=== PATIENT | female | born 1955 | race Hispanic/Latino ===

== ENCOUNTER 2018-06-14 16:59 | Inpatient (IN) | payer MEDICAID, MEDICARE ==
[2018-06-14 16:59] VITALS: BMI 29.6
[2018-06-14 17:14] VITALS: O2SAT 100
--- NOTE | 2018-06-14 18:14 | ED PDOC ---
HPI: Psych/Substance Abuse Time Seen by Provider: 06/14/18 17:19 Chief Complaint (Nursing): Psychiatric Evaluation History Per: Patient, Other (Jose (family friend)) Additional Complaint(s): Pt. states earlier today in her retirement she got into a verbal altercation with another resident. Admits to feeling anxious the last several days. States that she has not taken her meds as she does not know if she has enough of them. Reports a hx of anxiety. Denies SI/HI, hallucinations. Past Medical History Reviewed: Historical Data, Nursing Documentation, Vital Signs Vital Signs: Last Vital Signs Temp 98 F 06/14/18 17:10 Pulse 94 H 06/14/18 17:10 Resp 18 06/14/18 17:10 BP Pulse Ox 100 06/14/18 17:10 - Medical History PMH: Anxiety, Depression, Diverticulitis, HTN, Migraine Denies: Diabetes, Hepatitis, HIV, Chronic Kidney Disease, Seizures, Sexually Transmitted Disease - Surgical History Surgical History: Appendectomy, Tonsillectomy - Family History Family History: States: No Known Family Hx - Home Medications Home Medications: Ambulatory Orders Medication Instructions Recorded Clonazepam [Klonopin] 2 mg PO Q12 06/14/18 Escitalopram [Lexapro] 10 mg PO DAILY 06/14/18 Fluticasone Nasal [Flonase] 2 spray JAY DAILY 06/14/18 Loratadine [Claritin] 10 mg PO DAILY 06/14/18 Meclizine [Meclizine*] 25 mg PO DAILY 06/14/18 Multivitamin [Multi-Vitamin Daily] 1 tab PO DAILY 06/14/18 Sodium Chloride [Saline Nasal 2 spray JAY DAILY PRN 06/14/18 [place]] Verapamil HCl [Verapamil ER] 240 mg PO DAILY 06/14/18 Zonisamide [Zonisamide] 150 mg PO BID 06/14/18 hydrOXYzine HCl [Atarax] 50 mg PO TID 06/14/18 traZODone [Desyrel] 50 mg PO HS 06/14/18 - Allergies Allergies/Adverse Reactions: Allergies Allergy/AdvReac Type Severity Reaction Status Date / Time No Known Allergies Allergy Verified 10/24/13 17:35 Review of Systems ROS Statement: Except As Marked, All Systems Reviewed And Found Negative Psych: Positive for: Anxiety Physical Exam - Reviewed Nursing Documentation Reviewed: Yes Vital Signs Reviewed: Yes - Physical Exam Appears: Positive for: Well, Non-toxic, No Acute Distress Head Exam: Positive for: ATRAUMATIC, NORMAL INSPECTION, NORMOCEPHALIC Skin: Positive for: Normal Color, Warm. Negative for: Rash Eye Exam: Positive for: EOMI, Normal appearance, PERRL ENT: Positive for: Normal ENT Inspection Neck: Positive for: Normal, Painless ROM Cardiovascular/Chest: Positive for: Regular Rate, Rhythm Respiratory: Positive for: CNT, Normal Breath Sounds Gastrointestinal/Abdominal: Positive for: Normal Exam, Soft. Negative for: Tenderness Back: Positive for: Normal Inspection Extremity: Positive for: Normal ROM Neurologic/Psych: Positive for: Alert, Oriented, Mood/Affect (slightly anxious, cooperative). Negative for: Aphasia, Facial Droop - Laboratory Results Result Diagrams: 06/15/18 06:20 06/14/18 19:18 - ECG O2 Sat by Pulse Oximetry: 100 - Radiology X-Ray: Interpreted by Me (CXR) X-Ray Interpretation: No Acute Disease - Progress ED Course And Treament: Crisis eval ordered. BP 148/88 (as per Wist RN - drywall professional) Pt. evaluated by Subhash ecclesiastical worker who spoke with Dr. Lozano and requests pt. to be admitted. Labs, CXR, EKG, klonopin 2mg PO ordered. Disposition - Clinical Impression Clinical Impression: Bipolar affective disorder - Patient ED Disposition Is Patient to be Admitted: Transfer of Care (Signed out to Tal PAREDES pending medical clearance) - Disposition Disposition Time: 20:00 Condition: STABLE
[2018-06-14 19:22] LABS: BASO # 0.1 K/uL (0.0-0.2); BASO % 0.7 % (0.0-2.0); EOS # 0.1 K/uL (0.0-0.7); HEMOGLOBIN 12.7 g/dL (12.0-16.0); LYMPH # 3.8 K/uL (1.0-4.3); MEAN CELL VOLUME 86.3 fl (81.0-99.0); MEAN CORPUSCULAR HEMOGLOBIN 28.6 pg (27.0-31.0); MEAN CORPUSCULAR HGB CONC 33.1 g/dL (33.0-37.0); MEAN PLATELET VOLUME 7.6 fl (7.2-11.7); MONO # 0.7 K/uL (0.0-0.8); MONO % 5.5 % (0.0-10.0); NEUT # 8.7 K/uL (1.8-7.0); NEUT % 64.8 % (50.0-75.0); RBC 4.45 Mil/uL (3.80-5.20); RED CELL DISTRIBUTION WIDTH 13.5 % (11.5-14.5); WHITE BLOOD COUNT 13.5 K/uL (4.8-10.8)
[2018-06-14 19:38] LABS: ALB/GLOB RATIO 1.6 (1.0-2.1); ALBUMIN 4.6 g/dL (3.5-5.0); ALT/SGPT 33 U/L (9-52); AST/SGOT 27 U/L (14-36); BLOOD UREA NITROGEN 23 mg/dl (7-17); CALCIUM 9.5 mg/dL (8.4-10.2); GFR NON-AFRICAN AMERICAN 56
--- NOTE | 2018-06-14 20:50 | ED PDOC ---
- Laboratory Results Result Diagrams: 06/14/18 19:18 06/14/18 19:18 - ECG ECG: Positive for: Viewed By Me (reviewed by ED attending) ECG Rhythm: Positive for: Sinus Rhythm O2 Sat by Pulse Oximetry: 100 - Progress ED Course And Treament: case endorsed to chief underwriter from Deion PAREDES pending urine, ekg, psych admission Medical Decision Making Medical Decision Making: Patient medically stable for psych admission Disposition - Clinical Impression Clinical Impression: Bipolar affective disorder - POA Present On Arrival: None - Disposition Disposition: Admitted as In-Patient Disposition Time: 23:00 Condition: STABLE
[2018-06-14 23:00] LABS: SQUAMOUS EPITHIAL 1 /hpf (0-5); URINE BILIRUBIN NEGATIVE (NEGATIVE); URINE BLOOD NEGATIVE (NEGATIVE); URINE CLARITY CLEAR (Clear); URINE COLOR YELLOW (YELLOW); URINE GLUCOSE (UA) NEG (Normal); URINE LEUKOCYTE ESTERASE NEG Leu/uL (Negative); URINE PROTEIN 30 mg/dL (NEGATIVE); URINE UROBILINOGEN 0.2-1.0 mg/dL (0.2-1.0)
[2018-06-14 23:15] LABS: BARBITURATES, UR NEGATIVE (NEGATIVE); BENZODIAZEPINES, UR NEGATIVE (NEGATIVE); OPIATES, UR NEGATIVE (NEGATIVE); PHENCYCLIDINE, UR NEGATIVE (NEGATIVE)
[2018-06-15] MEDS ORDERED: Alum-Mag Hydrox-Simethicone Susp (30 mL) PO PRN (01:08)
[2018-06-15] MEDS ORDERED: Magnesium Hydroxide Susp 30 ml UD PO PRN (01:08)
--- NOTE | 2018-06-15 01:46 | PCM.BM ---
<Blanche Zuluaga - Last Filed: 06/15/18 01:43> Treatment Plan Problems - Problems identified on initial assessmt Agitated/aggressive behavior Date Initiated: 06/15/18 Time Initiated: 01:44 Assessment reference: NA Status: Active Medication nonadherence Date Initiated: 06/15/18 Time Initiated: 01:45 Assessment reference: NA Status: Active Treatment assets and liabiliti Patient Assests: ADL independent, negotiates basic needs, cognitively intact Patient Liabilities: live alone, poor support system, medical problems - Milieu Protocol Maintain good personal hygiene: every shift Encourage regular showers, every shift Remind patient to perform daily oral care, every shift Assist patient to perform ADL's Conduct patient checks and document Observation sheet: Q15 minutes Maintain personal safety: every shift Educate patient to report safety concerns to staff, every shift Monitor environment for contraband/sharps Medication safety: Monitor for expected outcome, potential side effects: every shift, Assess barriers to learning: every shift, Assess readiness for medication education: every shift <Charmaine De La Cruz - Last Filed: 06/15/18 10:37> - Diagnosis (1) Bipolar affective disorder Status: Acute Interventions: Medication management, Individual and group therapy, Psychoeducation 06/15/18 10:37 <Calli Winters - Last Filed: 06/15/18 15:17> Family Contact Family involvement: No known Family/SO - [facility] Information-sharing Agency contact name: [facility] contact number: [phone] or [phone] - Goals for Treatment Patient goals for treatment: Pt to be encouraged to attend activity and clinical groups 3-5x per week to identify at least 2 contributing factors to increased agitation, irritability, and aggression. Psycho-education to be provided to patient/family regarding benefits of medications and treatment adherence. Pt to be encouraged to participate in group milieu to develop effective coping skills to reduce aggression and reduce psychiatric hospitalizations. Coordinate discharge resource needs by providing referral for psychiatric treatment follow up in the community. Discharge/Continuing Care - Education Needs Education Needs: Family Medication, Family Diagnosis/Disease Process, Family Coping Skills, Family Placement options, Family Community resources, Family Activities of Daily Living, Family Health Practices/Safety, Family Personal Hygiene/Grooming, Family Aftercare Safety Plan - Discharge Discharge Criteria: Tolerates medication w/o severe side effects, Free of agitation, Normal sleep pattern, Ability to care for self, Reduction of target symptoms Discharge to:: Detention - Additional Comments 06/15/18 15:08 Pt seen and discussed in team meeting. Reason for hospitalization reviewed and discussed. Pt reported she was referred to the hospital because "I got upset." Reportedly, pt became aggressive at the [facility]. Pt was easily agitated, irritable and demanding during team meeting. Pt demanding that she be provided with her cell phone. Pt informed that she cannot have her cell phone with her on the unit; however, that she can write down the telephone numbers in a piece of paper. Pt was not agreeable stating "It's a confidentially thing." Pt presented a suspicious and guarded during team meeting. Pt also reported that she can read things that are going to happen in the future. Pt's medical and social issues reviewed and discussed. Pt's medications reviewed. Pt reported she does not recall how long she stopped taking her medications and what medications she was taking. Tx plan reviewed and discussed. Pt verbalized agreement. Pt signed consent forms for Christa Fields and Dr. Martin Mariscal MD. SW to continue to follow case. - Treatment Team Participation Discussed with Family/SO: No Was Patient/Family/SO present at Treatment Team Meeting: Yes
[2018-06-15 06:40] LABS: HEMOGLOBIN 12.2 g/dL (12.0-16.0); MEAN CELL VOLUME 86.1 fl (81.0-99.0); MEAN CORPUSCULAR HEMOGLOBIN 28.5 pg (27.0-31.0); MEAN CORPUSCULAR HGB CONC 33.1 g/dL (33.0-37.0); RBC 4.28 Mil/uL (3.80-5.20); RED CELL DISTRIBUTION WIDTH 14.1 % (11.5-14.5); WHITE BLOOD COUNT 12.7 K/uL (4.8-10.8)
[2018-06-15 06:45] LABS: HDL CHOLESTEROL 102 MG/DL (30-70)
[2018-06-15 06:56] LABS: LDL CHOLESTEROL 83 mg/dL (0-129)
[2018-06-15 06:59] LABS: IRON 83 ug/dL (37-170)
[2018-06-15 07:01] LABS: T4 7.37 ug/dl (5.5-11.0)
[2018-06-15 07:12] LABS: % IRON SATURATION 26 % (20-55); TOTAL IRON BINDING CAPACITY 320 ug/dL (250-450)
[2018-06-15 07:18] LABS: FERRITIN 21.2 ng/Ml (11.1-264.0)
--- NOTE | 2018-06-15 07:53 | PCM.PSYCH ---
Initial Psychiatric Evaluation - Initial Psychiatric Evaluation Type of Admission: Voluntary Legal Status: Capacity Chief Complaint (in patient's own words): "I have FRANCES" Patient's Reaction to Hospitalization: HPI: 63 yo female referred by her senior care for worsening aggression, mood lability, pressured speech, and psychotic beliefs that she has FRANCES and can read some people's minds. She denies acute AH/VH/SI/HI. She is acutely paranoid and refuses to write things on paper due to concerns of "confidentiality." PPHx: H/o 3 prior psychiatric hospitalizations; not compliant w/ outpatient treatment or medications PMHx: HTN; Seasonal allergies ALL: NKDA SHx: Lives in a senior care; denies current drug/etoh/cig use Current Medications: Active Medications Generic Name Dose Route Start Last Admin Trade Name Freq PRN Reason Stop Dose Admin Acetaminophen 650 mg 06/15/18 01:08 Tylenol 325mg Tab PO Q4 PRN Pain, moderate (4-7) Al Hydrox/Mg Hydrox/Simethicone 30 ml 06/15/18 01:08 Maalox Plus 30 Ml PO Q4 PRN Dyspepsia Bismuth Subsalicylate 524 mg 06/15/18 01:08 Pepto-Bismol PO Q4 PRN Diarrhea Lorazepam 0.5 mg 06/15/18 01:08 Ativan PO 06/29/18 01:09 HS PRN Insomnia Lorazepam 0.5 mg 06/15/18 01:08 Ativan PO 06/29/18 01:09 Q6 PRN Anixety/Agitation Magnesium Hydroxide 30 ml 06/15/18 01:08 Milk Of Magnesia PO HS PRN Constipation Past Psychiatric History - Past Psychiatric History Previous Treatment History: Inpatient Pertinent Medical Hx (Current Medical&Sleep Prob, Allergies): Allergies Allergy/AdvReac Type Severity Reaction Status Date / Time No Known Allergies Allergy Verified 10/24/13 17:35 Clonazepam [Klonopin] 2 mg PO Q12 06/14/18 Escitalopram [Lexapro] 10 mg PO DAILY 06/14/18 Fluticasone Nasal [Flonase] 2 spray JAY DAILY 06/14/18 Loratadine [Claritin] 10 mg PO DAILY 06/14/18 Meclizine [Meclizine*] 25 mg PO DAILY 06/14/18 Multivitamin [Multi-Vitamin Daily] 1 tab PO DAILY 06/14/18 Sodium Chloride [Saline Nasal [place]] 2 spray JAY DAILY PRN 06/14/18 Verapamil HCl [Verapamil ER] 240 mg PO DAILY 06/14/18 Zonisamide [Zonisamide] 150 mg PO BID 06/14/18 hydrOXYzine HCl [Atarax] 50 mg PO TID 06/14/18 traZODone [Desyrel] 50 mg PO HS 06/14/18 Review of Systems - Psychiatric Psychiatric: As Per HPI, Abnormal Sleep Pattern, Behavioral Changes, Change in Appetite, Difficulty Concentrating, Irritability, Mood Swings, Paranoia, Other ( Aggression/Agitation) Mental Status Examination - Personal Presentation Personal Presentation: Looks older than stated age - Affect Affect: Other (Labile, Irritable) - Motor Activity Motor Activity: Psychomotor Agitation - Reliability in Providing Information Reliability in Providing Information: Poor, due to alteration in thoughts - Speech Speech: Tangential - Mood Mood: Other (Angry) - Formal Thought Process Formal Thought Process: Paranoia, Loosening of associations, Flight of ideas, Other (Grandiose; believes she has FRANCES) - Hallucinations/Delusions Additional comments: Denies AH/VH - Obsessions/Compulsions Obsessions: No Compulsions: No - Cognitive Functions Orientation: Person, Place, Situation, Time Sensorium: Alert Attention/Concentration: Attentive Estimate of Intelligence: Average Judgement: Imparied, as evidence by: Lack of insight into illness Memory: Recent impaired, as evidence by: Inability to recall events of the day - Risk Risk: Diminished functioning - Strength & Assets Inventory Strength & Assets Inventory: Life experience DSM 5 DX - DSM 5 DSM 5 Diagnosis: Bipolar Disorder w/ Psychotic Features vs Schizoaffective Disorder - Recommended/Plan of Treatment Treatment Recommendations and Plan of Treatment: Bipolar Disorder w/ Psychotic Features vs Schizoaffective Disorder -Admit to psychiatry unit -Individual and group therapy -Start Risperdal and titrate gradually -Medicine consult -Psychoeducation -Obtain collateral history -Disposition planning Projected ELOS: 7-10 days Discharge Plan and Discharge Criteria: Discharge when patient is psychiatrically stable - Smoking Cessation Smoking Cessation Initiated: No Reason for not providing: Not indicated
--- NOTE | 2018-06-15 08:23 | CARD ---
APPROVED REPORT Date of service: 06/14/2018 EKG Measurement Heart [id number] <Conclusion> Normal sinus rhythm Prolonged QT Abnormal ECG
--- NOTE | 2018-06-15 09:10 | RAD ---
Date of service: 06/14/2018 HISTORY: clearance COMPARISON: No prior. FINDINGS: LUNGS: No active pulmonary disease. PLEURA: No significant pleural effusion identified, no pneumothorax apparent. CARDIOVASCULAR: Normal. OSSEOUS STRUCTURES: No significant abnormalities. VISUALIZED UPPER ABDOMEN: Normal. OTHER FINDINGS: None. IMPRESSION: No active disease.
[2018-06-15] MEDS ORDERED: DiphenhydrAMINE 50 mg/ml Inj IM PRN (10:39)
[2018-06-15 13:15] LABS: FOLATE > 20.0 ng/mL
[2018-06-16] MEDS: Verapamil 240 mg ER Tab PO SCH (08:45)
[2018-06-16] MEDS: Multivitamin With Minerals Tab PO SCH (08:47)
--- NOTE | 2018-06-16 10:47 | PCM.PYCHPN ---
Psychiatric Progress Note - Psychiatric Progress Note Patient seen today, length of contact: pt seen and evaluated. Patient Chief Complaint: pt has remained very paranoid and labile with poor insight and constantly getting into altercation with peers. pt has poor insight and poor judgemet and need constant redirection. Mental Status Examination - Cognitive Function Orientation: Person, Place, Situation, Time - Mood Mood: Other (Angry) - Affect Affect: Other (Labile, Irritable) - Formal Thought Process Formal Thought Process: Paranoia, Loosening of associations, Flight of ideas, Other (Grandiose; believes she has FRANCES) Goal/Treatment Plan - Goal/Treatment Plan Progress Toward Problem(s) and Goals/Treatment Plan: will increase risperdal to 1 mg am and 2 mg hs to stabilize the psychosis. Disposition as per dr dee.
[2018-06-16] MEDS: Nasal Spray(Ocean spray) NAS PRN (13:09)
--- NOTE | 2018-06-16 18:06 | CP.PCM.CON ---
History of Present Illness - History of Present Illness History of Present Illness: 63 yo female with no significant PMH admitted in [facility] because of worsening aggression in [facility]. Review of Systems - Review of Systems All systems: reviewed and no additional remarkable complaints except (aside from those mentioned above, 12 point system review were negative by me) Past Patient History - Infectious Disease Hx of Infectious Diseases: None - Tetanus Immunizations Tetanus Immunization: Up to Date - Past Social History Smoking Status: Never Smoked Chewing Tobacco Use: No Cigar Use: No Alcohol: Occasional Home Situation {Lives}: Other (Correction) - CARDIAC Hx Hypertension: Yes - PULMONARY Hx Tuberculosis: No Other/Comment: "Chronic respiratory failure" - NEUROLOGICAL Hx Migraine: Yes Hx Seizures: No - HEENT Hx HEENT Problems: No - RENAL Hx Chronic Kidney Disease: No - ENDOCRINE/METABOLIC Hx Endocrine Disorders: No - HEMATOLOGICAL/ONCOLOGICAL Hx Human Immunodeficiency Virus (HIV): No - INTEGUMENTARY Hx Dermatological Problems: No Hx Cellulitis: Yes - MUSCULOSKELETAL/RHEUMATOLOGICAL Hx Musculoskeletal Disorders: No Hx Falls: No - GASTROINTESTINAL Hx Diverticulitis: Yes - GENITOURINARY/GYNECOLOGICAL Hx Sexually Transmitted Disorders: No - PSYCHIATRIC Hx Anxiety: Yes Hx Depression: Yes - SURGICAL HISTORY Hx Appendectomy: Yes Hx Tonsillectomy: Yes - ANESTHESIA Hx Anesthesia: Yes Hx Anesthesia Reactions: No Hx Malignant Hyperthermia: No Meds Allergies/Adverse Reactions: Allergies Allergy/AdvReac Type Severity Reaction Status Date / Time No Known Allergies Allergy Verified 10/24/13 17:35 - Medications Medications: Current Medications Acetaminophen (Tylenol 325mg Tab) 650 mg PO Q4 PRN PRN Reason: Pain, moderate (4-7) Last Admin: 06/16/18 03:20 Dose: 650 mg Al Hydrox/Mg Hydrox/Simethicone (Maalox Plus 30 Ml) 30 ml PO Q4 PRN PRN Reason: Dyspepsia Bismuth Subsalicylate (Pepto-Bismol) 524 mg PO Q4 PRN PRN Reason: Diarrhea Diphenhydramine HCl (Benadryl) 50 mg IM Q6 PRN PRN Reason: Agitation Diphenhydramine HCl (Benadryl) 50 mg PO Q6 PRN PRN Reason: Agitation Last Admin: 06/16/18 10:10 Dose: 50 mg Fluticasone Propionate (Flonase) 2 spr JAY DAILY SHARON Haloperidol (Haldol) 2 mg PO Q6 PRN PRN Reason: Agitation Last Admin: 06/15/18 12:08 Dose: 2 mg Haloperidol Lactate (Haldol) 2 mg IM Q6 PRN PRN Reason: Agitation Ibuprofen (Motrin Tab) 400 mg PO Q6 PRN PRN Reason: Pain, Mild (1-3) Loratadine (Claritin) 10 mg PO DAILY [facility] Last Admin: 06/16/18 08:46 Dose: 10 mg Lorazepam (Ativan) 0.5 mg PO HS PRN PRN Reason: Insomnia Stop: 06/29/18 01:09 Last Admin: 06/15/18 21:32 Dose: 0.5 mg Lorazepam (Ativan) 1 mg IM Q6 PRN PRN Reason: Agitation Lorazepam (Ativan) 1 mg PO Q6 PRN PRN Reason: Anixety/Agitation Stop: 06/29/18 01:09 Last Admin: 06/16/18 10:10 Dose: 1 mg Magnesium Hydroxide (Milk Of Magnesia) 30 ml PO HS PRN PRN Reason: Constipation Multivitamins/Minerals (Therapeutic-M Tab) 1 tab PO DAILY [facility] Last Admin: 06/16/18 08:47 Dose: 1 tab Risperidone (Risperdal Tab) 1 mg PO Q12 [facility] Last Admin: 06/16/18 08:47 Dose: 1 mg Sodium Chloride (Brule Nasal [place]) 1 sprays JAY DAILY PRN PRN Reason: Nasal congestion Last Admin: 06/16/18 13:09 Dose: 1 spray Verapamil HCl (Calan Sr Tab) 240 mg PO DAILY [facility] Last Admin: 06/16/18 08:45 Dose: 240 mg Physical Exam - Constitutional Appears: No Acute Distress - Head Exam Head Exam: ATRAUMATIC - Eye Exam Eye Exam: absent: Scleral icterus - ENT Exam ENT Exam: Mucous Membranes Moist - Neck Exam Neck exam: Negative for: Meningismus - Respiratory Exam Respiratory Exam: absent: Rales, Rhonchi, Wheezes, Respiratory Distress - Cardiovascular Exam Cardiovascular Exam: REGULAR RHYTHM, +S1, +S2 - GI/Abdominal Exam GI & Abdominal Exam: Soft. absent: Tenderness - Rectal Exam Rectal Exam: Deferred - Extremities Exam Extremities exam: Negative for: pedal edema - Neurological Exam Neurological exam: Alert, Oriented x3 - Psychiatric Exam Psychiatric exam: Normal Affect - Skin Skin Exam: Dry, Intact Results - Vital Signs Recent Vital Signs: Last Vital Signs Temp 97.3 F L 06/16/18 15:36 Pulse 92 H 06/16/18 15:36 Resp 20 06/16/18 15:36 BP 149/67 06/16/18 15:36 Pulse Ox 100 06/15/18 10:28 - Labs Result Diagrams: 06/15/18 06:20 06/14/18 19:18 Labs: Laboratory Results - last 24 hr 06/15/18 06:20 RPR Nonreactive Assessment & Plan (1) Aggression Status: Acute Comment: psyche is managing
[2018-06-17] MEDS: Verapamil 240 mg ER Tab PO SCH (08:32)
[2018-06-17] MEDS: Multivitamin With Minerals Tab PO SCH (08:35)
--- NOTE | 2018-06-17 13:17 | PCM.PYCHPN ---
Psychiatric Progress Note - Psychiatric Progress Note Patient seen today, length of contact: pt seen and evaluated. Patient Chief Complaint: pt has been very somatic and attention seeking and has remained very paranoid and labile with poor insight and constantly getting into altercation with peers. pt has poor insight and poor judgemet and need constant redirection. Mental Status Examination - Cognitive Function Orientation: Person, Place, Situation, Time - Mood Mood: Other (Angry) - Affect Affect: Other (Labile, Irritable) - Formal Thought Process Formal Thought Process: Paranoia, Loosening of associations, Flight of ideas, Other (Grandiose; believes she has FRANCES) Goal/Treatment Plan - Goal/Treatment Plan Progress Toward Problem(s) and Goals/Treatment Plan: will increase risperdal to 1 mg am and 2 mg hs to stabilize the psychosis. Disposition as per dr dee.
[2018-06-18] MEDS: Verapamil 240 mg ER Tab PO SCH (08:04)
[2018-06-18] MEDS: Multivitamin With Minerals Tab PO SCH (08:09)
--- NOTE | 2018-06-18 09:24 | PCM.PYCHPN ---
Psychiatric Progress Note - Psychiatric Progress Note Patient seen today, length of contact: Patient evaluated, case discussed w/ team , chart reviewed Patient Chief Complaint: "I have FRANCES" Problems Identified/Issues Discussed: Patient continues to be manic w/ tangential and pressured speech; but she is calmer and more redirectable than when she was first admitted. She denies current adverse effects to medications and we discussed continued titration of Risperdal. She continues to be believe she has special abilities, such as FRANCES. Medication Change: No Medical Record Reviewed: Yes Consults ordered or reviewed: Medicine consult Mental Status Examination - Cognitive Function Orientation: Person, Place, Situation, Time Memory: Intact Attention: Poor Association: Loose Fund of Knowledge: WNL Decription of patient's judgement and insights: Poor I/J - Mood Mood: Euphoric - Affect Affect: Other (Labile) - Speech Speech: Pressured - Formal Thought Process Formal Thought Process: Delusions, Loosening of associations, Flight of ideas, Other (Grandiose; believes she has FRANCES) Psychotic Thoughts and Behaviors: +Grandiose delusions; denies AH/VH - Suicidal Ideation Suicidal Ideation: No - Homicidal Ideation Homicidal Ideation: No Goal/Treatment Plan - Goal/Treatment Plan Need for Continued Stay: Remain at risks for inpatient hospitalization, Discharge may exacerbated symptoms Progress Toward Problem(s) and Goals/Treatment Plan: Bipolar Disorder w/ Psychotic Features vs Schizoaffective Disorder -Individual and group therapy -Risperdal 1 mg PO AM/2 mg PO HS; will increase to 2 mg PO Q12 tomorrow -Medicine consult -Psychoeducation -Obtain collateral history -Disposition planning Estimated Date of D/C: 06/21/18
[2018-06-18] MEDS: Bismuth Subsalicylate 262 mg/15 ml Sus (240 ml) PO PRN (11:34)
[2018-06-18] MEDS ORDERED: Albuterol HFA 90 mcg/actuation (8 g) INH PRN (16:57)
[2018-06-18] MEDS: Nasal Spray(Ocean spray) NAS PRN (18:36)
[2018-06-19] MEDS: Multivitamin With Minerals Tab PO SCH (08:44)
[2018-06-19] MEDS: Verapamil 240 mg ER Tab PO SCH (08:44)
--- NOTE | 2018-06-19 09:59 | PCM.PYCHPN ---
Psychiatric Progress Note - Psychiatric Progress Note Patient seen today, length of contact: Patient evaluated, case discussed w/ team , chart reviewed Patient Chief Complaint: "I have FRANCES" Problems Identified/Issues Discussed: Patient continues to be manic w/ pressured speech and beliefs that she has FRANCES. We discussed starting Risperdal Consta to increase compliance with treatment and medications. Medication Change: Yes (Start Risperdal Consta 25 mg IM) Medical Record Reviewed: Yes Consults ordered or reviewed: Medicine consult Mental Status Examination - Cognitive Function Orientation: Person, Place, Situation, Time Memory: Intact Attention: Poor Association: Loose Fund of Knowledge: WNL Decription of patient's judgement and insights: Poor I/J - Mood Mood: Euphoric - Affect Affect: Other (Labile) - Speech Speech: Pressured - Formal Thought Process Formal Thought Process: Delusions, Loosening of associations, Flight of ideas, Other (Grandiose; believes she has FRANCES) Psychotic Thoughts and Behaviors: +Grandiose delusions; denies AH/VH - Suicidal Ideation Suicidal Ideation: No - Homicidal Ideation Homicidal Ideation: No Goal/Treatment Plan - Goal/Treatment Plan Need for Continued Stay: Remain at risks for inpatient hospitalization, Discharge may exacerbated symptoms Progress Toward Problem(s) and Goals/Treatment Plan: Bipolar Disorder w/ Psychotic Features vs Schizoaffective Disorder -Individual and group therapy -Risperdal Consta 25 mg IM on 06/19/18; will continue PO Risperdal for 2 weeks -Medicine consult -Psychoeducation -Disposition planning Estimated Date of D/C: 06/22/18
[2018-06-19] MEDS ORDERED: risperiDONE Consta 25mg/2ml Syringe IM ONE (10:09)
[2018-06-19] MEDS: Bismuth Subsalicylate 262 mg/15 ml Sus (240 ml) PO PRN (13:28)
[2018-06-19] MEDS: Lubricant Eye Drops UD OU PRN (19:33)
[2018-06-20] MEDS: Lubricant Eye Drops UD OU PRN ×2 (01:07→21:00)
--- NOTE | 2018-06-20 08:23 | PCM.PYCHPN ---
Psychiatric Progress Note - Psychiatric Progress Note Patient seen today, length of contact: Patient evaluated, case discussed w/ team , chart reviewed Patient Chief Complaint: "I have FRANCES" Problems Identified/Issues Discussed: Patient is calmer, w/ less pressured speech, but continues to be intrusive and believes she has special abilities, although she is less pressured to talk about her FRANCES abilities. She is more organized on conversation. She received Risperdal Consta 25 mg IM yesterday. We discussed the importance of compliance with treatment and medications. No adverse effects to medications reported. She reports poor sleep last night. Medication Change: No Medical Record Reviewed: Yes Consults ordered or reviewed: Medicine consult Mental Status Examination - Cognitive Function Orientation: Person, Place, Situation, Time Memory: Intact Association: WNL Fund of Knowledge: [facility] Decription of patient's judgement and insights: Improving I/J - Mood Mood: Neutral - Affect Affect: Broad - Speech Speech: Pressured - Formal Thought Process Formal Thought Process: Other (Grandiose; believes she has FRANCES) Psychotic Thoughts and Behaviors: +Grandiose delusions; denies AH/VH - Suicidal Ideation Suicidal Ideation: No - Homicidal Ideation Homicidal Ideation: No Goal/Treatment Plan - Goal/Treatment Plan Need for Continued Stay: Remain at risks for inpatient hospitalization, Discharge may exacerbated symptoms Progress Toward Problem(s) and Goals/Treatment Plan: Bipolar Disorder w/ Psychotic Features vs Schizoaffective Disorder -Individual and group therapy -Risperdal Consta 25 mg IM given on 06/19/18; will continue PO Risperdal for 2 weeks -Medicine consult -Psychoeducation -Disposition planning Estimated Date of D/C: 06/22/18
[2018-06-20] MEDS: Verapamil 240 mg ER Tab PO SCH (08:55)
[2018-06-20] MEDS: Multivitamin With Minerals Tab PO SCH (08:59)
[2018-06-20] MEDS: Nasal Spray(Ocean spray) NAS PRN (09:06)
[2018-06-21] MEDS: Verapamil 240 mg ER Tab PO SCH (08:35)
[2018-06-21] MEDS: Multivitamin With Minerals Tab PO SCH (08:36)
--- NOTE | 2018-06-21 09:41 | PCM.PYCHPN ---
Psychiatric Progress Note - Psychiatric Progress Note Patient seen today, length of contact: Patient evaluated, case discussed w/ team , chart reviewed Patient Chief Complaint: "I'm feeling better." Problems Identified/Issues Discussed: Patient is calmer, more organized, less pressured and less grandiose. We discussed the importance of compliance with treatment and medications. No adverse effects to medications reported. She reports improved sleep w/ Trazodone. Medication Change: No Medical Record Reviewed: Yes Consults ordered or reviewed: Medicine consult Mental Status Examination - Cognitive Function Orientation: Person, Place, Situation, Time Memory: Intact Association: WNL Fund of Knowledge: [facility] Decription of patient's judgement and insights: Improving I/J - Mood Mood: Neutral - Affect Affect: Broad - Speech Speech: Pressured - Formal Thought Process Formal Thought Process: Other (Grandiose) Psychotic Thoughts and Behaviors: +Grandiose delusions; denies AH/VH - Suicidal Ideation Suicidal Ideation: No - Homicidal Ideation Homicidal Ideation: No Goal/Treatment Plan - Goal/Treatment Plan Need for Continued Stay: Remain at risks for inpatient hospitalization, Discharge may exacerbated symptoms Progress Toward Problem(s) and Goals/Treatment Plan: Bipolar Disorder w/ Psychotic Features vs Schizoaffective Disorder -Individual and group therapy -Risperdal Consta 25 mg IM given on 06/19/18, next due 07/03/18; will continue PO Risperdal for 2 weeks -Trazodone 50 mg PO HS -Medicine consult -Psychoeducation -Disposition planning- patient is improving clinically, will likely discharge tomorrow if she continues to improve Estimated Date of D/C: 06/22/18
[2018-06-21 11:26] VITALS: RESP 20
--- NOTE | 2018-06-22 08:18 | PCM.PYCHDC ---
Mental Status Examination - Mental Status Examination Orientation: Person, Place, Situation, Time Memory: Intact Mood: Neutral Affect: Broad Speech: Appropriate Attention: WNL Concentration: WNL Association: WNL Fund of Knowledge: WNL Formal Thought Process: No Impairment Description of patient's judgement and insight: Fair I/J Psychotic Thoughts and Behaviors: No AH/VH/paranoia/delusions Suicidal Ideation: No Current Homicidal Ideation?: No Discharge Summary - Discharge Note Reason for Hospitalization: HPI: 63 yo female referred by her halfway for worsening aggression, mood lability, pressured speech, and psychotic beliefs that she has FRANCES and can read some people's minds. She denies acute AH/VH/SI/HI. She is acutely paranoid and refuses to write things on paper due to concerns of "confidentiality." PPHx: H/o 3 prior psychiatric hospitalizations; not compliant w/ outpatient treatment or medications PMHx: HTN; Seasonal allergies ALL: NKDA SHx: Lives in a halfway; denies current drug/etoh/cig use Consultations:: List each consultation separately and include: 1. Reason for request. 2. Findings. 3. Follow-up Consultations: Medicine consult Summary of Hospital Course include:: 1. Description of specific treatment plan utilized for patients during their course of treatmen. 2. Summarize the time- course for resolution of acute symptoms and/or regressed behaviors. 3. Describe issues identified and worked on during hospitalization. 4. Describe medication utilized. 5. Describe medical problems identified and treated. 6. Reassessment of suicide risk Summary of Hospital Course: Patient was admitted to the psychiatry unit. She was stabilized on Risperdal ( given Risperdal Conta 25 mg IM, will continue oral Risperdal for 2 weeks and stop before next Risperdal Consta injection) and Trazodone. She is no longer manic. She is calm, cooperative, denies acute AH/VH/paranoia/delusions. She is psychiatrically stable for discharge w/ outpatient psychiatric follow-up. - Diagnosis (1) Bipolar affective disorder Current Visit: Yes Status: Chronic - Final Diagnosis (DSM 5) Condition upon Discharge: STABLE DSM 5: Bipolar Disorder Disposition: HOME/ ROUTINE Follow-up Treatment Plan: Bipolar Disorder w/ Psychotic Features vs Schizoaffective Disorder -Individual and group therapy -Risperdal Consta 25 mg IM given on 06/19/18, next due 07/03/18; continue PO Risperdal until 07/02/18 -Trazodone 50 mg PO HS -Medicine consult -Psychoeducation Prescriptions/Medication Reconciliation: hydrOXYzine Pamoate [Vistaril] 25 mg PO TID PRN #90 cap PRN Reason: Anxiety Loratadine [Claritin] 10 mg PO DAILY #30 tab Risperidone [RisperDAL Consta] 25 mg IM Q2W #1 syr risperiDONE [RisperDAL Tab] 2 mg PO Q12 #14 tab traZODone [Desyrel] 50 mg PO HS #30 tab Verapamil HCl [Verapamil ER] 240 mg PO DAILY #30 cap24h.pel - Smoking Cessation Smoking Cessation Medication prescribed: No Reason for not providing: Not indicated - Antipsychotic Medications Pt discharged on 2 or more routine antipsychotic medications: No
[2018-06-22] MEDS: Verapamil 240 mg ER Tab PO SCH (08:42)
[2018-06-22] MEDS: Multivitamin With Minerals Tab PO SCH (08:44)
[2018-06-22 08:45] VITALS: BP 139/77; PULSE 112
[2018-06-22 08:47] VITALS: TEMP 97.2
== END 2018-06-22 11:30 | disposition home or self-care (01) | DRG 885 ==
LOC: H.ER 16:59 → H.ERHOLD 23:08 → H.STEP 06-15 00:59
PROVIDERS: ADMIT Psychiatry & Neurology Psychiatry; ATTEND Psychiatry & Neurology Psychiatry
PROC: GZHZZZZ Group Psychotherapy (ICD-10-PCS; principal; 2018-06-14)
DX: F31.9 Bipolar disorder, unspecified (principal); I10 Essential (primary) hypertension; G43.909 Migraine, unspecified, not intractable, without status migrainosus; R45.1 Restlessness and agitation